=== PATIENT | male | born 1960 | race Caucasian/White ===

== ENCOUNTER → 2018-11-02 | Outpatient (REF) ==
--- NOTE | 2018-11-02 15:20 | REP ---
REASON: Disability. AP pelvis and AP and lateral view of each hip was obtained. AP PELVIS: There is bilateral asymmetric hip joint space narrowing which is mild to moderate. There is no buttressing. There is no fracture, dislocation, or subluxation. Degenerative change is seen involving the imaged spine. RIGHT HIP, TWO VIEWS: There is asymmetric hip joint space narrowing without buttressing or marginal osteophytosis. LEFT HIP, TWO VIEWS: There is asymmetric hip joint space narrowing without buttressing or marginal osteophytosis. Electronically Signed by Martín Ruiz DO 11/03/2018 03:19 P
--- NOTE | 2018-11-02 16:02 | REP ---
REASON: Disability. PRIORS: None. Heavy partial syndesmophyte formation is seen at T12-L1 bilaterally, L1-2 bilaterally, L2-3 bilaterally, and L4-5 on the right. There is moderate disc space narrowing at every level. There is anterior lipping at every level. Vertebral body height and alignment is within normal limits. IMPRESSION: Chronic changes as described above. Electronically Signed by Martín Ruiz DO 11/03/2018 03:23 P
== END ==
LOC: M SMT 13:17
PROVIDERS: ATTEND Internal Medicine
DX: Z02.71 Encounter for disability determination (principal)